=== PATIENT | male | born 1970 | race Caucasian/White ===

== ENCOUNTER 2019-07-23 18:48 | Emergency (ER) | payer OTHER ==
[~2019-07-23] VITALS: Ht 182.9 cm; Wt 72.6 kg
[2019-07-23] MEDS ORDERED: PROZAC40 MG PO (19:25)
[2019-07-23] MEDS ORDERED: NEURONTIN300 MG PO ×5 (19:26→19:56)
[2019-07-23] MEDS ORDERED: PROZAC20 MG PO (19:56)
[2019-07-23] MEDS ORDERED: ZOFRAN ODT4 MG PO (19:58)
[2019-07-23 21:20] VITALS: BP 144/78
== END 2019-07-23 21:21 | disposition home or self-care (01) ==
LOC: M.ERS 18:48
DX: G89.29 Other chronic pain (principal); M19.90 Unspecified osteoarthritis, unspecified site; F41.9 Anxiety disorder, unspecified; F32.9 Major depressive disorder, single episode, unspecified; F17.210 Nicotine dependence, cigarettes, uncomplicated; Z76.0 Encounter for issue of repeat prescription; Z88.0 Allergy status to penicillin; Z88.1 Allergy status to other antibiotic agents; Z88.2 Allergy status to sulfonamides